=== PATIENT | female | born 1985 | race Caucasian/White ===

== ENCOUNTER 2017-07-14 11:49 | Emergency (ER) | payer MEDICAID ==
[2017-07-14 11:56] VITALS: BP 146/89
[2017-07-14] MEDS ORDERED: Ondansetron 4 MG/2 ML SDV IVPUSH ONE (12:18)
[2017-07-14] MEDS ORDERED: Sodium Chloride 0.9% 1,000 ML IV SCH ×2 (12:30→14:30)
--- NOTE | 2017-07-14 14:27 | CR ---
Abdomen Series w Chest 1V HISTORY: No Clinical Info FINDINGS: Heart size within normal limits. Pulmonary vasculature within normal limits. No evidence fo r focal consolidation or cardiopulmonary process. No dilated loops of small bowel. Large amount of fe suleiman residual within left-sided colon.
--- NOTE | 2017-07-14 15:23 | EDM.PDOC ---
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 It was very hot in the area. She suddenly felt very lite headed and got extremely sweaty. She did not have chest pain. She did not vomit. She thought her fluid intake was good. She does admit to being very busy for the last 2-3 days. She has been aving normal 12Bis. Onset: Today, Sudden Duration: Hour(s): Location: Reports: Head, Other (Pt did not have any pain on arrival. ) Associated Symptoms: Reports: Other (pt did have mild nausea. 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 She still felt a little washed out. ) Psychiatric: Reports: No Symptoms - Physical Exam Exam: See Below Text/Narrative:: pt had a near syncopal episode. She denied chest pain. Aftetr being here for a short time she did develop some pain in the left upper abdoman. . She had this briefly and then it went away. Exam Limited By: No Limitations General Appearance: Alert, Anxious, Mild Distress Ears: Normal TMs Nose: Normal Inspection Throat/Mouth: Normal Inspection Head Exam: Atraumatic Neck: Normal Inspection Respiratory/Chest: No Respiratory Distress Cardiovascular: Regular Rate, Rhythm GI/Abdominal: Soft, Non-Tender, Other (mild tenderness in the left upper abdoman. ) (Female) Exam: Deferred Rectal (Female) Exam: Deferred Neuro Exam (Abbreviated): Alert, Oriented, Normal Cognition Course - Vital Signs Last Recorded V/S: Last Vital Signs Temp 36.1 C 07/14/17 11:55 Pulse 52 L 07/14/17 11:55 Resp 16 07/14/17 11:55 BP 146/89 H 07/14/17 11:55 Pulse Ox 99 07/14/17 11:55 - Orders/Labs/Meds Orders: Active Orders 24 hr Category Date Time Status EKG Documentation Completion [RC] ASDIRECTED Care 07/14/17 12:19 Active EKG 12 Lead [EK] Routine Ther 07/14/17 12:19 Ordered Labs: Laboratory Tests 07/14/17 07/14/17 07/14/17 Range/Units 12:01 12:01 14:21 WBC 9.9 (4.5-11.0) K/uL RBC 4.80 (3.30-5.50) M/uL Hgb 14.3 (12.0-15.0) g/dL Hct 42.6 (36.0-48.0) % MCV 89 (80-98) fL MCH 30 (27-31) pg MCHC 34 (32-36) % Plt Count 215 (150-400) K/uL Neut % (Auto) 66 (36-66) % Lymph % (Auto) 24 (24-44) % Coffee % (Auto) 9 H (2-6) % Eos % (Auto) 1 L (2-4) % Baso % (Auto) 1 (0-1) % Sodium 140 (140-148) mmol/L Potassium 3.9 (3.6-5.2) mmol/L Chloride 104 (100-108) mmol/L Carbon Dioxide 25 (21-32) mmol/L Anion Gap 10.7 (5.0-14.0) mmol/L BUN 11 (7-18) mg/dL Creatinine 0.8 (0.6-1.0) mg/dL Est Cr Clr Drug Dosing 101.84 mL/min Estimated GFR (MDRD) > 60 (>60) Glucose 104 (74-106) mg/dL Calcium 8.5 (8.5-10.1) mg/dL Total Bilirubin 0.3 (0.2-1.0) mg/dL AST 21 (15-37) U/L ALT 31 (12-78) U/L Alkaline Phosphatase 77 (46-116) U/L Total Protein 7.4 (6.4-8.2) g/dL Albumin 3.7 (3.4-5.0) g/dL Globulin 3.7 H (2.3-3.5) g/dL Albumin/Globulin Ratio 1.0 L (1.2-2.2) Urine Color Urine Appearance Urine pH (4.5-8.0) Ur Specific [place] (1.008-1.030) Urine Protein (NEGATIVE) mg/dL Urine Glucose (UA) (NEGATIVE) mg/dL Urine Ketones (NEGATIVE) mg/dL Urine Occult Blood (NEGATIVE) Urine Nitrite (NEGATIVE) Urine Bilirubin (NEGATIVE) Urine Urobilinogen (NORMAL) mg/dL Ur Leukocyte Esterase (NEGATIVE) Urine RBC (0-5) Urine WBC (0-5) Ur Epithelial Cells Amorphous Sediment Urine Bacteria Urine Mucus Urine HCG, Qual Negative 07/14/17 Range/Units 14:21 WBC (4.5-11.0) K/uL RBC (3.30-5.50) M/uL Hgb (12.0-15.0) g/dL Hct (36.0-48.0) % MCV (80-98) fL MCH (27-31) pg MCHC (32-36) % Plt Count (150-400) K/uL Neut % (Auto) (36-66) % Lymph % (Auto) (24-44) % Coffee % (Auto) (2-6) % Eos % (Auto) (2-4) % Baso % (Auto) (0-1) % Sodium (140-148) mmol/L Potassium (3.6-5.2) mmol/L Chloride (100-108) mmol/L Carbon Dioxide (21-32) mmol/L Anion Gap (5.0-14.0) mmol/L BUN (7-18) mg/dL Creatinine (0.6-1.0) mg/dL Est Cr Clr Drug Dosing mL/min Estimated GFR (MDRD) (>60) Glucose (74-106) mg/dL Calcium (8.5-10.1) mg/dL Total Bilirubin (0.2-1.0) mg/dL AST (15-37) U/L ALT (12-78) U/L Alkaline Phosphatase (46-116) U/L Total Protein (6.4-8.2) g/dL Albumin (3.4-5.0) g/dL Globulin (2.3-3.5) g/dL Albumin/Globulin Ratio (1.2-2.2) Urine Color Yellow Urine Appearance Clear Urine pH 8.0 (4.5-8.0) Ur Specific [place] 1.010 (1.008-1.030) Urine Protein Negative (NEGATIVE) mg/dL Urine Glucose (UA) Normal (NEGATIVE) mg/dL Urine Ketones Negative (NEGATIVE) mg/dL Urine Occult Blood Negative (NEGATIVE) Urine Nitrite Negative (NEGATIVE) Urine Bilirubin Negative (NEGATIVE) Urine Urobilinogen Normal (NORMAL) mg/dL Ur Leukocyte Esterase Negative (NEGATIVE) Urine RBC 0-5 (0-5) Urine WBC 0-5 (0-5) Ur Epithelial Cells Not seen Amorphous Sediment Not seen Urine Bacteria Not seen Urine Mucus Not seen Urine HCG, Qual Meds: Medications Discontinued Medications Generic Name Dose Route Start Last Admin Trade Name Freq PRN Reason Stop Dose Admin Sodium Chloride 1,000 mls @ 999 mls/hr 07/14/17 12:30 07/14/17 13:07 Normal Saline IV 999 mls/hr ASDIRECTED JOSH Administration Sodium Chloride 1,000 mls @ 999 mls/hr 07/14/17 14:30 Normal Saline IV ASDIRECTED JOSH Ondansetron HCl 4 mg 07/14/17 12:18 07/14/17 13:09 Zofran IVPUSH 07/14/17 12:19 4 mg ONETIME ONE Administration - Re-Assessments/Exams Free Text/Narrative Re-Assessment/Exam: 07/14/17 15:26 pt was found to have normal lab work/ Her ekg was normal. Her rhythm continued to look good. She was on the dehydrated side. She was given 2 liters of fluid. She is feeling back to normal. 07/15/17 07:31 Departure - Departure Time of Disposition: 15:28 Disposition: Home, Self-Care 01 Condition: Fair Clinical Impression: Dehydration - Discharge Information Instructions: Dehydration, Adult, [id number] Referrals: PCP,None [Primary Care Provider] - Forms: ED Department Discharge Care Plan Goals: epush fluids, rtc if further symptoms, tylenol for headache. - My Orders Last 24 Hours: My Active Orders 07/14/17 12:19 EKG Documentation Completion [RC] ASDIRECTED EKG 12 Lead [EK] Routine - Assessment/Plan Last 24 Hours: My Active Orders 07/14/17 12:19 EKG Documentation Completion [RC] ASDIRECTED EKG 12 Lead [EK] Routine
== END 2017-07-14 15:37 | disposition home or self-care (01) ==
LOC: JP.ED 11:49
DX: E86.0 Dehydration (principal)
CPT/HCPCS: 36415; 74022; 80053; 81001; 81025; 85025; 93005; 96360; 99284; J2405; J7040

== ENCOUNTER 2019-02-05 21:22 | Emergency (ER) | payer MEDICAID ==
[2019-02-05 21:47] VITALS: BP 141/95
[2019-02-05] MEDS ORDERED: cefTRIAXone 1 GM, Lidocaine 1% 2.1 ML IM ONE ×2 (22:10)
[2019-02-05] MEDS ORDERED: Phenazopyridine 95 MG Tab PO ONE ×2 (22:10→22:27)
--- NOTE | 2019-02-05 22:16 | EDM.PDOC ---
ED HPI GENERAL MEDICAL PROBLEM - General Chief Complaint: Genitourinary Problem Stated Complaint: UTI SYMPTOMS Time Seen by Provider: 02/05/19 22:11 Source of Information: Reports: Patient History Limitations: Reports: No Limitations - History of Present Illness INITIAL COMMENTS - FREE TEXT/NARRATIVE: pt arrived with pain in the lower abdoman and alot of burning when he passes her urine. She is going very often. Onset: Today, Other ( this has been going on all day. 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: Social & Family History - Tobacco Use Smoking Status *Q: Current Every Day Smoker Years of Tobacco use: 15 Packs/Tins Daily: 0.3 - Caffeine Use Caffeine Use: Reports: Coffee, Energy Drinks, Soda ED ROS GENERAL - Review of Systems Review Of Systems: See Below Constitutional: Reports: No Symptoms HEENT: Reports: No Symptoms Respiratory: Reports: No Symptoms Cardiovascular: Reports: No Symptoms Endocrine: Reports: No Symptoms GI/Abdominal: Reports: Abdominal Pain, Other (pt has burning on urination and marked frequency) : Reports: Dysuria, Frequency, Pain, Urgency ED EXAM, GI/ABD - Physical Exam Exam: See Below Text/Narrative:: pt arrived with marked urgency and abdomanal pain. Exam Limited By: No Limitations General Appearance: Alert, Moderate Distress Ears: Normal TMs Nose: Normal Inspection Throat/Mouth: Normal Inspection Head: Atraumatic Neck: Normal Inspection Respiratory/Chest: No Respiratory Distress Cardiovascular: Regular Rate, Rhythm GI/Abdominal Exam: Other (pain in lower abdoman. ) (Female) Exam: Deferred Rectal (Female) Exam: Deferred Back Exam: Normal Inspection Extremities: Normal Inspection Neurological: Alert, Oriented, Normal Cognition Course - Vital Signs Last Recorded V/S: Last Vital Signs Temp 35.8 C 02/05/19 21:56 Pulse 91 02/05/19 21:56 Resp 16 02/05/19 21:56 BP 141/95 H 02/05/19 21:56 Pulse Ox 98 02/05/19 21:56 - Orders/Labs/Meds Orders: Active Orders 24 hr Category Date Time Status CBC WITH AUTO DIFF [HEME] Urgent Lab 02/05/19 22:09 Ordered CULTURE URINE [RM] Stat Lab 02/05/19 22:12 Received Labs: Laboratory Tests 02/05/19 Range/Units 21:45 Urine Color [place] Urine Appearance Cloudy Urine pH 5.0 (4.5-8.0) Ur Specific [place] 1.025 (1.008-1.030) Urine Protein Trace (NEGATIVE) mg/dL Urine Glucose (UA) Normal (NEGATIVE) mg/dL Urine Ketones 50 H (NEGATIVE) mg/dL Urine Occult Blood Large (NEGATIVE) Urine Nitrite Negative (NEGATIVE) Urine Bilirubin Moderate (NEGATIVE) Urine Urobilinogen 4 (NORMAL) mg/dL Ur Leukocyte Esterase Moderate (NEGATIVE) Urine RBC 5-10 H (0-5) Urine WBC Packed H (0-5) Ur Epithelial Cells Many Amorphous Sediment Few Urine Bacteria Moderate Urine Mucus Few Urine Other See note Meds: Medications Discontinued Medications Generic Name Dose Route Start Last Admin Trade Name Freq PRN Reason Stop Dose Admin Ceftriaxone Sodium 1 gm/ 0 gm 02/05/19 22:10 Lidocaine HCl 2.1 ml IM 02/05/19 22:11 ONETIME ONE Phenazopyridine HCl 190 mg 02/05/19 22:10 Urinary Pain Relief PO 02/05/19 22:11 ONETIME ONE - Re-Assessments/Exams Free Text/Narrative Re-Assessment/Exam: 02/05/19 22:15 urine appears very infected. Her symptoms have gotten quite severe tonight. Departure - Departure Time of Disposition: 22:15 Disposition: Home, Self-Care 01 Condition: Fair Clinical Impression: UTI (urinary tract infection) - Discharge Information Instructions: Urinary Tract Infection, Adult, [id number] Referrals: PCP,None [Primary Care Provider] - Forms: ED Department Discharge Care Plan Goals: push fluids, pyridium 200mg tid for next 2 days, cipro 500mg bid for 10 days. - My Orders Last 24 Hours: My Active Orders 02/05/19 22:09 CBC WITH AUTO DIFF [HEME] Urgent 02/05/19 22:12 CULTURE URINE [RM] Stat - Assessment/Plan Last 24 Hours: My Active Orders 02/05/19 22:09 CBC WITH AUTO DIFF [HEME] Urgent 02/05/19 22:12 CULTURE URINE [RM] Stat
[2019-02-05] MEDS ORDERED: Phenazopyridine 95 MG Tab PO STA (22:34)
== END 2019-02-05 22:43 | disposition home or self-care (01) ==
LOC: JP.ED 21:22
DX: N39.0 Urinary tract infection, site not specified (principal); F17.210 Nicotine dependence, cigarettes, uncomplicated
CPT/HCPCS: 36415; 81001; 85025; 87086; 96372; 99283; A9270; J0696; J2001

== ENCOUNTER 2019-07-30 14:47 | Emergency (ER) | payer MEDICAID ==
[2019-07-30 15:03] VITALS: BP 128/85; PULSE 67
[2019-07-30] MEDS ORDERED: Ondansetron 4 MG/2 ML SDV IVPUSH ONE (15:23)
[2019-07-30] MEDS ORDERED: Sodium Chloride 0.9% 1,000 ML IV SCH (15:30)
--- NOTE | 2019-07-30 15:30 | EDM.PDOC ---
ED HPI GENERAL MEDICAL PROBLEM - General Chief Complaint: Genitourinary Problem Stated Complaint: POSSIBLE UTI Time Seen by Provider: 07/30/19 14:56 Source of Information: Reports: Patient History Limitations: Reports: No Limitations - History of Present Illness INITIAL COMMENTS - FREE TEXT/NARRATIVE: 34 yo female presents with right sided flank pain and dysuria. She is 11 weeks . Has a 8 mm kidney stone. 24 hours ago dysuria unrelieved with Azo. nauseated but that is not new with this . 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 - Tobacco Use Smoking Status *Q: Never Smoker - Caffeine Use Caffeine Use: Reports: Coffee, Energy Drinks, Soda ED ROS GENERAL - Review of Systems Review Of Systems: See Below Constitutional: Denies: Fever, Chills Respiratory: Denies: Shortness of Breath, Wheezing Cardiovascular: Denies: Chest Pain, Palpitations GI/Abdominal: Reports: Abdominal Pain : Reports: Dysuria, Flank Pain, Frequency, Urgency ED EXAM, GI/ABD - Physical Exam Exam: See Below Exam Limited By: No Limitations General Appearance: Alert, WD/WN, No Apparent Distress Neck: Normal Inspection, Supple, Non-Tender, Full Range of Motion. No: Lymphadenopathy (R), Lymphadenopathy (L) Respiratory/Chest: No Respiratory Distress, Lungs Clear, Normal Breath Sounds. No: Crackles, Rhonchi, Wheezing Cardiovascular: Normal Peripheral Pulses, Regular Rate, Rhythm, No Edema GI/Abdominal Exam: Soft, No Distention, Other (suprapubic tenderness) Course - Vital Signs Last Recorded V/S: Last Vital Signs Temp 36.8 C 07/30/19 15:02 Pulse 67 07/30/19 15:02 Resp 15 07/30/19 15:02 BP 128/85 07/30/19 15:02 Pulse Ox 98 07/30/19 15:02 - Orders/Labs/Meds Orders: Active Orders 24 hr Category Date Time Status CULTURE URINE [RM] Stat Lab 07/30/19 16:30 Received Sodium Chloride 0.9% [Normal Saline] 1,000 ml Med 07/30/19 15:30 Active IV ASDIRECTED Medication Orders Sodium Chloride (Normal Saline) 1,000 mls @ 999 mls/hr IV ASDIRECTED JOSH Last Admin: 07/30/19 15:38 Dose: 999 mls/hr Labs: Laboratory Tests 07/30/19 Range/Units 15:15 Urine Color Yellow (YELLOW) Urine Appearance Slightly cloudy A (CLEAR) Urine pH 6.5 (5.0-8.0) Ur Specific [place] 1.025 (1.008-1.030) Urine Protein Negative (NEGATIVE) mg/dL Urine Glucose (UA) Negative (NEGATIVE) mg/dL Urine Ketones Negative (NEGATIVE) mg/dL Urine Occult Blood Trace-intact H (NEGATIVE) Urine Nitrite Positive H (NEGATIVE) Urine Bilirubin Negative (NEGATIVE) Urine Urobilinogen 0.2 (0.2-1.0) EU/dL Ur Leukocyte Esterase Negative (NEGATIVE) Urine RBC 0-5 (0-5) Urine WBC 0-5 (0-5) Ur Epithelial Cells Moderate Amorphous Sediment Not seen Urine Bacteria Moderate Urine Mucus Not seen Meds: Medications Generic Name Dose Route Start Last Admin Trade Name Freq PRN Reason Stop Dose Admin Sodium Chloride 1,000 mls @ 999 mls/hr 07/30/19 15:30 07/30/19 15:38 Normal Saline IV 999 mls/hr ASDIRECTED JOSH Administration Discontinued Medications Generic Name Dose Route Start Last Admin Trade Name Freq PRN Reason Stop Dose Admin Acetaminophen 1,000 mg 07/30/19 15:42 07/30/19 15:56 Tylenol Extra Strength PO 07/30/19 15:43 1,000 mg ONETIME ONE Administration Ondansetron HCl 4 mg 07/30/19 15:23 07/30/19 15:38 Zofran IVPUSH 07/30/19 15:24 4 mg ONETIME ONE Administration Departure - Departure Time of Disposition: 16:49 Disposition: Home, Self-Care 01 Condition: Good Clinical Impression: UTI, Urinary tract infectious disease - Discharge Information *PRESCRIPTION DRUG MONITORING PROGRAM REVIEWED*: Not Applicable *COPY OF PRESCRIPTION DRUG MONITORING REPORT IN PATIENT JULIUS: Not Applicable Instructions: Urinary Tract Infection, Adult, [id number] Referrals: PCP,None [Primary Care Provider] - Forms: ED Department Discharge Additional Instructions: increase fluid intake with goal of 1.5-2 liters per day Amoxicillin 500 mg twice daily for 7 days - My Orders Last 24 Hours: My Active Orders 07/30/19 15:30 Sodium Chloride 0.9% [Normal Saline] 1,000 ml IV ASDIRECTED 07/30/19 16:30 CULTURE URINE [RM] Stat - Assessment/Plan Last 24 Hours: My Active Orders 07/30/19 15:30 Sodium Chloride 0.9% [Normal Saline] 1,000 ml IV ASDIRECTED 07/30/19 16:30 CULTURE URINE [RM] Stat
[2019-07-30] MEDS ORDERED: Acetaminophen 500 MG Tab PO ONE (15:42)
== END 2019-07-30 17:03 | disposition home or self-care (01) ==
LOC: JP.ED 14:47
DX: O23.41 Unspecified infection of urinary tract in pregnancy, first trimester (principal); Z3A.11 11 weeks gestation of pregnancy
CPT/HCPCS: 81001; 87086; 96361; 96374; 99284; A9270; J2405; J7030

== ENCOUNTER 2020-09-20 12:59 | Inpatient (IN) | payer MEDICAID ==
[2020-09-20] MEDS ORDERED: Acetaminophen 325 MG Tab PO PRN (13:39)
[2020-09-20] MEDS ORDERED: Sodium Chloride 0.9% 10 ML Syringe FLUSH PRN (13:39)
--- NOTE | 2020-09-20 15:14 | US ---
BPP w NST INDICATION: post dates COMPARISON: None FINDINGS: Single live IUP in: Cephalic position. heart rate: 128 BPM. Biophysical profile score: 8/8. OLIVIA: 9.3 cm. IMPRESSION: Normal biophysical profile score of 8/8.
--- NOTE | 2020-09-20 17:19 | PCM.LDHP ---
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: Dermatologic History: Reports: Eczema Social & Family History - Tobacco Use Tobacco Use Status *Q: Former Tobacco User Used Tobacco, but Quit: Yes Month/Year Tobacco Last Used: 11/30/19 Second Hand Smoke Exposure: No - Caffeine Use Caffeine Use: Reports: Coffee, Soda, Tea - Recreational Drug Use Recreational Drug Use: No H&P Review of Systems - Review of Systems: Review Of Systems: See Below General: Reports: No Symptoms HEENT: Reports: No Symptoms Pulmonary: Reports: No Symptoms Cardiovascular: Reports: No Symptoms Gastrointestinal: Reports: No Symptoms Genitourinary: Reports: No Symptoms Musculoskeletal: Reports: No Symptoms Skin: Reports: No Symptoms Psychiatric: Reports: No Symptoms Neurological: Reports: No Symptoms Hematologic/Lymphatic: Reports: No Symptoms Immunologic: Reports: No Symptoms L&D Exam - Exam Exam: See Below - Vital Signs Vital Signs: Last Vital Signs Temp 37.0 C 09/20/20 15:42 Pulse 81 09/20/20 15:42 Resp 18 09/20/20 15:42 BP 108/66 09/20/20 15:42 Pulse Ox 98 09/20/20 15:42 Weight: 104.326 kg - OB Specific Contraction Intensity: Mild to Moderate Movement: Active Heart Tones: Present Heart Rate (FHR) Variability: Moderate (6-25 bmp) Presentation: Vertex - Hilliard Score Hilliard Score Cervix Position: Midposition Hilliard Score Consistency: Soft Hilliard Score Effacement: >80% Hilliard Score Dilation: 3-4 cm Hilliard Score 's Station: -1 ,0 Hilliard Score Total: 10 - Exam General: Alert, Oriented, Cooperative HEENT: PERRLA, Conjunctiva Clear, EACs Clear, EOMI, Hearing Intact, Mucosa Moist & [place], Nares Patent, Normal Nasal Septum, Posterior Pharynx Clear, Pupils Equal, Pupils Reactive, TMs Clear Neck: Supple, Trachea Midline Lungs: Clear to Auscultation, Normal Respiratory Effort Cardiovascular: Regular Rate, Regular Rhythm GI/Abdominal Exam: Normal Bowel Sounds, Soft, Non-Tender, No Organomegaly, No Distention, No Abnormal Bruit, No Mass, Pelvis Stable Rectal Exam: Normal Exam, Normal Rectal Tone Genitourinary: Normal external exam, Normal bimanual exam, Normal speculum exam Back Exam: Normal Inspection, Full Range of Motion Extremities: Normal Inspection, Normal Range of Motion, Non-Tender, No Pedal Edema, Normal Capillary Refill Skin: Warm, Dry, Intact Neurological: Cranial Nerves Intact, Reflexes Equal Bilateral Psychiatric: Alert, Normal Affect, Normal Mood - Patient Data Lab Results Last 24 hrs: Laboratory Results - last 24 hr 09/20/20 09/20/20 09/20/20 Range/Units 13:18 13:18 13:19 WBC 8.4 (4.5-11.0) K/uL RBC 4.28 (3.30-5.50) M/uL Hgb 12.6 D (12.0-15.0) g/dL Hct 38.3 (36.0-48.0) % MCV 90 (80-98) fL MCH 29 (27-31) pg MCHC 33 (32-36) % Plt Count 215 (150-400) K/uL Neut % (Auto) 73 H (36-66) % Lymph % (Auto) 18 L (24-44) % Graham % (Auto) 9 H (2-6) % Eos % (Auto) 1 L (2-4) % Baso % (Auto) 0 (0-1) % Urine Color Yellow (YELLOW) Urine Appearance Cloudy A (CLEAR) Urine pH 7.0 (5.0-8.0) Ur Specific [place] 1.020 (1.008-1.030) Urine Protein Negative (NEGATIVE) mg/dL Urine Glucose (UA) Negative (NEGATIVE) mg/dL Urine Ketones Negative (NEGATIVE) mg/dL Urine Occult Blood Trace-intact H (NEGATIVE) Urine Nitrite Negative (NEGATIVE) Urine Bilirubin Negative (NEGATIVE) Urine Urobilinogen 0.2 (0.2-1.0) EU/dL Ur Leukocyte Esterase Trace H (NEGATIVE) Urine RBC 0-5 (0-5) Urine WBC 0-5 (0-5) Ur Epithelial Cells Many Amorphous Sediment Moderate Urine Bacteria Few Urine Mucus Few Urine Opiates Screen Negative (NEGATIVE) Ur Oxycodone Screen Negative (NEGATIVE) Urine Methadone Screen Negative (NEGATIVE) Ur Propoxyphene Screen Negative (NEGATIVE) Ur Barbiturates Screen Negative (NEGATIVE) Ur Tricyclics Screen Negative (NEGATIVE) Ur Phencyclidine Scrn Negative (NEGATIVE) Ur Amphetamine Screen Negative (NEGATIVE) U Methamphetamines Scrn Negative (NEGATIVE) Urine MDMA Screen Negative (NEGATIVE) U Benzodiazepines Scrn Negative (NEGATIVE) U Cocaine Metab Screen Negative (NEGATIVE) U Marijuana (THC) Screen Negative (NEGATIVE) Result Diagrams: 09/20/20 13:18 - Problem List (1) SNOMED Code(s): 74121496 ICD Code: Z34.90 - ENCNTR FOR SUPRVSN OF NORMAL , UNSP, UNSP TRIMESTER Status: Acute Current Visit: Yes Qualifiers: Weeks of gestation: 40 weeks Qualified Code(s): Z3A.40 - 40 weeks gestation of (2) Non-reassuring electronic monitoring tracing SNOMED Code(s): 501843150 ICD Code: O36.8390 - MATERN CARE FOR ABNLT FETL HRT RATE OR RHYM, UNSP TRI, UNSP Status: Acute Current Visit: Yes (3) Encounter for induction of labor SNOMED Code(s): 581967078 ICD Code: Z34.90 - ENCNTR FOR SUPRVSN OF NORMAL , UNSP, UNSP TRIMESTER Status: Acute Current Visit: Yes (4) AMA (advanced maternal age) multigravida 35+ SNOMED Code(s): 656130779 ICD Code: O09.529 - SUPERVISION OF ELDERLY MULTIGRAVIDA, UNSPECIFIED TRIMESTER Status: Acute Current Visit: Yes Qualifiers: Trimester: third trimester Qualified Code(s): O09.523 - Supervision of elderly multigravida, third trimester Problem List Initiated/Reviewed/Updated: Yes Orders Last 24hrs: Active Orders 24 hr Category Date Time Status Patient Status [ADT] Routine ADT 09/20/20 13:39 Active Ambulate [RC] PER UNIT ROUTINE Care 09/20/20 13:39 Active Communication Order [RC] ASDIRECTED Care 09/20/20 13:39 Active Heart Tones [RC] PER UNIT ROUTINE Care 09/20/20 13:39 Active Non Stress Test [RC] Click to Edit Care 09/20/20 13:39 Active May Shower [RC] ASDIRECTED Care 09/20/20 13:39 Active Notify Provider Vital Signs [RC] PRN Care 09/20/20 13:39 Active Notify Provider [RC] PRN Care 09/20/20 13:39 Active OB Check [OM.PC] Click To Edit Care 09/20/20 13:16 Ordered Up ad Divine [RC] ASDIRECTED Care 09/20/20 13:39 Active VTE/DVT Education [RC] Click to Edit Care 09/20/20 13:42 Active Vital Signs [RC] PER UNIT ROUTINE Care 09/20/20 13:39 Active Clear Liquid Diet [DIET] Diet 09/20/20 Lunch Active Acetaminophen [TylenoL] Med 09/20/20 13:39 Active 650 mg PO Q4H PRN Oxytocin/Normal Saline [Pitocin in NS 20 Units/1,000 ML Med 09/20/20 13:45 Active ] 20 unit in 1,000 ml IV TITRATE Sodium Chloride 0.9% [Saline Flush] Med 09/20/20 13:39 Active 10 ml FLUSH ASDIRECTED PRN DVT/VTE Prophylaxis Reflex [OM.PC] Routine Oth 09/20/20 13:39 Ordered Saline Lock Insert [OM.PC] Routine Oth 09/20/20 13:39 Ordered Resuscitation Status Routine Resus Stat 09/20/20 13:39 Ordered Medication Orders Acetaminophen (Tylenol) 650 mg PO Q4H PRN PRN Reason: Pain (Mild 1-3) and fever Oxytocin/Sodium Chloride (Pitocin In Ns 20 Units/1,000 Ml) 20 unit in 1,000 mls @ 3 mls/hr IV TITRATE JOSH; Protocol Last Titration: 09/20/20 16:54 Dose: 3 munits/min, 9 mls/hr Documented by: Titration: 09/20/20 16:30 Dose: 2 munits/min, 6 mls/hr Documented by: Titration: 09/20/20 16:08 Dose: 1 munits/min, 3 mls/hr Documented by: Admin: 09/20/20 15:38 Dose: 0.5 munits/min, 1.5 mls/hr Documented by: AUGUSTA Sodium Chloride (Saline Flush) 10 ml FLUSH ASDIRECTED PRN PRN Reason: Keep Vein Open Assessment/Plan Comment:: 09/20/2020 35 yo here at 40 5/7 gestational weeks was seen in clinic and had a nonreassuring NST with occasional variables Decision was made to send to labor and delivery for BPP and induction of labor BPP-06/23 SVE-3-//-1 FHTs now category one now Plan- Continue to monitor for labor Continue to monitor FHTs Start Pitocin now per protocol Patient may have light diet Patient may be up ad divine Patient may get in tub Plan and anticipate a vaginal delivery
[2020-09-20] MEDS ORDERED: hydrOXYzine HCl 25 MG Tab PO STA (22:49)
[2020-09-21] MEDS ORDERED: Misoprostol 50 MCG (1/2 of 100 MCG) Tab PO ONE ×2 (02:00→05:00)
[2020-09-21] MEDS ORDERED: Misoprostol 50 MCG (1/2 of 100 MCG) Tab VAG ONE (07:32)
--- NOTE | 2020-09-21 07:38 | PCM.PNLD ---
Labor Progress Note - VS & Meds Vital Signs: Last Vital Signs Temp 36.4 C 09/21/20 02:30 Pulse 75 09/21/20 02:30 Resp 16 09/21/20 02:30 BP 134/58 L 09/21/20 02:30 Pulse Ox 97 09/21/20 02:30 Active Medications: Current Medications Acetaminophen (Tylenol) 650 mg PO Q4H PRN PRN Reason: Pain (Mild 1-3) and fever Hydroxyzine HCl (Atarax) 100 mg PO BEDTIME JOSH Oxytocin/Sodium Chloride (Pitocin In Ns 20 Units/1,000 Ml) 20 unit in 1,000 mls @ 3 mls/hr IV TITRATE JOSH; Protocol Last Titration: 09/20/20 21:50 Dose: 9 munits/min, 27 mls/hr Documented by: Misoprostol (Cytotec) 50 mcg VAG ONETIME ONE Stop: 09/21/20 07:33 Sodium Chloride (Saline Flush) 10 ml FLUSH ASDIRECTED PRN PRN Reason: Keep Vein Open Discontinued Medications Hydroxyzine HCl (Atarax) 100 mg PO ONETIME STA Stop: 09/20/20 22:50 Last Admin: 09/20/20 23:04 Dose: 100 mg Documented by: Misoprostol (Cytotec) 50 mcg PO ONETIME ONE Stop: 09/21/20 02:01 Last Admin: 09/21/20 02:06 Dose: 50 mcg Documented by: Misoprostol (Cytotec) 50 mcg PO ONETIME ONE Stop: 09/21/20 05:01 Last Admin: 09/21/20 05:21 Dose: 50 mcg Documented by: - Uterine Contractions Uterine Monitoring Mode: External [place] Contraction Frequency (min): 3-4 Contraction Duration (sec): 60-70 Contraction Intensity: Mild to Moderate Uterine Resting Tone: Soft - Monitoring Heart Rate (FHR) Variability: Moderate (6-25 bmp) Accelerations: Present, 15x15 Strip Review: Category I - Vaginal Exam Dilation (cm): 5-6 Effacement (Percent): 80 Station: -1 Cervical Position: Midposition Sterile Vaginal Exam Performed By: Josseline Frederick Vaginal Exam Comment: No change since prior cervical exam per Yoly - Labor Progress (Free Text) Labor Progress: 09/20/2020 Patient is still not progressing well and SVE still the same FHTs category one now Patient not really having pain Has been up walking and has also been on ball and in tub Pitocin on 20 units Plan- Lots of education done with patient, she is tired and would like to rest Decision made to shut pitocin off and vistaril to sleep Will do oral cytotec throughout am and then in am restart plan Patient and significant other agree and verbalize understanding of plan of care Continue to monitor for labor Continue to monitor FHTs Plan and anticipate a vaginal delivery
[2020-09-21] MEDS ORDERED: Naloxone 0.4 MG/ML SDV IVPUSH PRN (07:51)
[2020-09-21] MEDS ORDERED: diphenhydrAMINE 50 MG/ML SDV IVPUSH PRN ×2 (07:51)
[2020-09-21] MEDS ORDERED: ePHEDrine 50 MG/ML SDV IVPUSH PRN ×2 (07:51)
[2020-09-21] MEDS ORDERED: Lactated Ringers 1,000 ML IV ONE (07:51)
[2020-09-21] MEDS ORDERED: Sodium Chloride 0.9% 10 ML Syringe FLUSH PRN (07:51)
--- NOTE | 2020-09-21 07:51 | PCM.PNLD ---
Labor Progress Note - VS & Meds Vital Signs: Last Vital Signs Temp 36.4 C 09/21/20 02:30 Pulse 75 09/21/20 02:30 Resp 16 09/21/20 02:30 BP 134/58 L 09/21/20 02:30 Pulse Ox 97 09/21/20 02:30 Active Medications: Current Medications Acetaminophen (Tylenol) 650 mg PO Q4H PRN PRN Reason: Pain (Mild 1-3) and fever Hydroxyzine HCl (Atarax) 100 mg PO BEDTIME JOSH Oxytocin/Sodium Chloride (Pitocin In Ns 20 Units/1,000 Ml) 20 unit in 1,000 mls @ 3 mls/hr IV TITRATE JOSH; Protocol Last Titration: 09/20/20 21:50 Dose: 9 munits/min, 27 mls/hr Documented by: Sodium Chloride (Saline Flush) 10 ml FLUSH ASDIRECTED PRN PRN Reason: Keep Vein Open Discontinued Medications Hydroxyzine HCl (Atarax) 100 mg PO ONETIME STA Stop: 09/20/20 22:50 Last Admin: 09/20/20 23:04 Dose: 100 mg Documented by: Misoprostol (Cytotec) 50 mcg PO ONETIME ONE Stop: 09/21/20 02:01 Last Admin: 09/21/20 02:06 Dose: 50 mcg Documented by: Misoprostol (Cytotec) 50 mcg PO ONETIME ONE Stop: 09/21/20 05:01 Last Admin: 09/21/20 05:21 Dose: 50 mcg Documented by: Misoprostol (Cytotec) 50 mcg VAG ONETIME ONE Stop: 09/21/20 07:33 Last Admin: 09/21/20 07:39 Dose: 50 mcg Documented by: - Uterine Contractions Uterine Monitoring Mode: External [place] Contraction Frequency (min): 3-4 Contraction Duration (sec): 60-70 Contraction Intensity: Mild to Moderate Uterine Resting Tone: Soft - Monitoring Heart Rate (FHR) Variability: Moderate (6-25 bmp) Accelerations: Present, 15x15 Strip Review: Category I - Vaginal Exam Dilation (cm): 5-6 Effacement (Percent): 90 Station: -1 Cervical Position: Midposition Sterile Vaginal Exam Performed By: Josseline Frederick - Labor Progress (Free Text) Labor Progress: 09/21/2020 Patient is still same and not katia well education again done with patient She would like to try as many things to keep from a but if in end of day that is needed she does agree FHTs category one Cytotec placed SVE slight change not significant Plan- Continue to monitor for labor Continue to monitor FHTs Four hours from Cytotec if no progression in SVE in four hours will start Pitocin per protocol Patient may eat breakfast Patient may be up ad piter Patient may choose pain control option Plan and anticipate a vaginal delivery
[2020-09-21] MEDS ORDERED: Ketorolac 60 MG/2 ML SDV ONE (09:53)
[2020-09-21] MEDS ORDERED: Sugammadex Sodium 200 MG/2 ML VIAL ONE (10:07)
[2020-09-21] MEDS ORDERED: Lidocaine 1% 50 ML MDV SCH (10:15)
[2020-09-21] MEDS ORDERED: Ropivacaine 100 ML ONE (10:18)
[2020-09-21] MEDS ORDERED: Lactated Ringers 1,000 ML IV SCH (10:30)
[2020-09-21] MEDS: Ropivacaine 200 MG in Premix Bag 1 BAG EPIDUR SCH ×2 (10:56→15:19)
--- NOTE | 2020-09-21 12:01 | PCM.PNLD ---
Labor Progress Note - VS & Meds Vital Signs: Last Vital Signs Temp 36.8 C 09/21/20 07:43 Pulse 72 09/21/20 11:29 Resp 16 09/21/20 11:19 BP 92/61 09/21/20 11:32 Pulse Ox 99 09/21/20 11:29 Active Medications: Current Medications Acetaminophen (Tylenol) 650 mg PO Q4H PRN PRN Reason: Pain (Mild 1-3) and fever Diphenhydramine HCl (Benadryl) 25 mg IVPUSH Q6H PRN PRN Reason: Itching Diphenhydramine HCl (Benadryl) 50 mg IVPUSH Q6H PRN PRN Reason: Itching Ephedrine Sulfate (Ephedrine Sulfate) 10 mg IVPUSH ASDIRECTED PRN PRN Reason: Hypotension Hydroxyzine HCl (Atarax) 100 mg PO BEDTIME JOSH Oxytocin/Sodium Chloride (Pitocin In Ns 20 Units/1,000 Ml) 20 unit in 1,000 mls @ 3 mls/hr IV TITRATE JOSH; Protocol Last Titration: 09/20/20 21:50 Dose: 9 munits/min, 27 mls/hr Documented by: Ropivacaine 200 mg/ Premix 100 mls @ 0 mls/hr EPIDUR ASDIRECTED JOSH Last Admin: 09/21/20 10:56 Dose: 15 mls/hr Documented by: Lactated Ringer's (Ringers, Lactated) 1,000 mls @ 100 mls/hr IV ASDIRECTED JOSH Last Admin: 09/21/20 10:57 Dose: 100 mls/hr Documented by: Lidocaine HCl (Xylocaine 1%) 50 ml .XX ONETIME JOSH Stop: 09/21/20 18:00 Naloxone HCl (Narcan) 0.1 mg IVPUSH ASDIRECTED PRN PRN Reason: Oversedation Sodium Chloride (Saline Flush) 10 ml FLUSH ASDIRECTED PRN PRN Reason: Keep Vein Open Discontinued Medications Hydroxyzine HCl (Atarax) 100 mg PO ONETIME STA Stop: 09/20/20 22:50 Last Admin: 09/20/20 23:04 Dose: 100 mg Documented by: Lactated Ringer's (Ringers, Lactated) 1,000 mls @ 999 mls/hr IV .BOLUS ONE Stop: 09/21/20 08:51 Last Admin: 09/21/20 09:35 Dose: 999 mls/hr Documented by: Ketorolac Tromethamine (Toradol) Confirm Administered Dose 60 mg .ROUTE .STK-MED ONE Stop: 09/21/20 09:54 Misoprostol (Cytotec) 50 mcg PO ONETIME ONE Stop: 09/21/20 02:01 Last Admin: 09/21/20 02:06 Dose: 50 mcg Documented by: Misoprostol (Cytotec) 50 mcg PO ONETIME ONE Stop: 09/21/20 05:01 Last Admin: 09/21/20 05:21 Dose: 50 mcg Documented by: Misoprostol (Cytotec) 50 mcg VAG ONETIME ONE Stop: 09/21/20 07:33 Last Admin: 09/21/20 07:39 Dose: 50 mcg Documented by: Sugammadex Sodium ([place]rid[place]) Confirm Administered Dose 200 mg .ROUTE .STK-MED ONE Stop: 09/21/20 10:08 - Uterine Contractions Uterine Monitoring Mode: External [place] Contraction Frequency (min): 3-8 Contraction Duration (sec): 70-100 Contraction Intensity: Moderate Uterine Resting Tone: Soft - Monitoring Monitor Mode: External Ultrasound Heart Rate (FHR) Variability: Moderate (6-25 bmp) Accelerations: Present, 15x15 Decelerations: Variable Strip Review: Category I - Vaginal Exam Dilation (cm): 8 Effacement (Percent): 90 Station: -1 Cervical Position: Midposition Sterile Vaginal Exam Performed By: Josseline Frederick - Labor Progress (Free Text) Labor Progress: 09/21/2020 Patient is finally progressing SVE-8/90/-1 SROM earlier at about 1030 FHTs category one Patient requested epidural and is now comfortable with epidural Plan- Continue to monitor labor Continue to monitor FHTs Continue epidural for pain control start pitocin per protocol to keep contractions regular Plan and anticipate a vaginal delivery
--- NOTE | 2020-09-21 17:28 | PCM.PNLD ---
Labor Progress Note - VS & Meds Vital Signs: Last Vital Signs Temp 37.2 C 09/21/20 17:24 Pulse 89 09/21/20 17:24 Resp 16 09/21/20 17:24 BP 114/73 09/21/20 17:24 Pulse Ox 99 09/21/20 17:24 Active Medications: Current Medications Acetaminophen (Tylenol) 650 mg PO Q4H PRN PRN Reason: Pain (Mild 1-3) and fever Last Admin: 09/21/20 12:02 Dose: 650 mg Documented by: Diphenhydramine HCl (Benadryl) 25 mg IVPUSH Q6H PRN PRN Reason: Itching Diphenhydramine HCl (Benadryl) 50 mg IVPUSH Q6H PRN PRN Reason: Itching Ephedrine Sulfate (Ephedrine Sulfate) 10 mg IVPUSH ASDIRECTED PRN PRN Reason: Hypotension Oxytocin/Sodium Chloride (Pitocin In Ns 20 Units/1,000 Ml) 20 unit in 1,000 mls @ 3 mls/hr IV TITRATE JOSH; Protocol Last Titration: 09/21/20 17:23 Dose: 5 munits/min, 15 mls/hr Documented by: Ropivacaine 200 mg/ Premix 100 mls @ 0 mls/hr EPIDUR ASDIRECTED [facility] Last Admin: 09/21/20 15:19 Dose: 15 mls/hr Documented by: Lactated Ringer's (Ringers, Lactated) 1,000 mls @ 100 mls/hr IV ASDIRECTED JOSH Last Admin: 09/21/20 10:57 Dose: 100 mls/hr Documented by: Lidocaine HCl (Xylocaine 1%) 50 ml .XX ONETIME JOSH Stop: 09/21/20 18:00 Naloxone HCl (Narcan) 0.1 mg IVPUSH ASDIRECTED PRN PRN Reason: Oversedation Sodium Chloride (Saline Flush) 10 ml FLUSH ASDIRECTED PRN PRN Reason: Keep Vein Open Discontinued Medications Hydroxyzine HCl (Atarax) 100 mg PO BEDTIME JOSH Hydroxyzine HCl (Atarax) 100 mg PO ONETIME STA Stop: 09/20/20 22:50 Last Admin: 09/20/20 23:04 Dose: 100 mg Documented by: Lactated Ringer's (Ringers, Lactated) 1,000 mls @ 999 mls/hr IV .BOLUS ONE Stop: 09/21/20 08:51 Last Admin: 09/21/20 09:35 Dose: 999 mls/hr Documented by: Ketorolac Tromethamine (Toradol) Confirm Administered Dose 60 mg .ROUTE .STK-MED ONE Stop: 09/21/20 09:54 Misoprostol (Cytotec) 50 mcg PO ONETIME ONE Stop: 09/21/20 02:01 Last Admin: 09/21/20 02:06 Dose: 50 mcg Documented by: Misoprostol (Cytotec) 50 mcg PO ONETIME ONE Stop: 09/21/20 05:01 Last Admin: 09/21/20 05:21 Dose: 50 mcg Documented by: Misoprostol (Cytotec) 50 mcg VAG ONETIME ONE Stop: 09/21/20 07:33 Last Admin: 09/21/20 07:39 Dose: 50 mcg Documented by: Sugammadex Sodium (Bridion) Confirm Administered Dose 200 mg .ROUTE .STK-MED ONE Stop: 09/21/20 10:08 - Uterine Contractions Uterine Monitoring Mode: External [place] Contraction Frequency (min): 2-3 Contraction Duration (sec): 40-60 Contraction Intensity: Mild Uterine Resting Tone: Soft - Monitoring Monitor Mode: External Ultrasound Heart Rate (FHR) Variability: Moderate (6-25 bmp) Accelerations: Present, 15x15 Decelerations: Variable Strip Review: Category I - Vaginal Exam Dilation (cm): Rim Effacement (Percent): 100 Station: -1 Cervical Position: Midposition Sterile Vaginal Exam Performed By: Josseline Frederick Vaginal Exam Comment: anterior lip - Labor Progress (Free Text) Labor Progress: 09/21/2020 Patient progressing still slowly, but progressing She is now comfortable with epidural SVE-Rim/100/-1 FHTs category one Pitocin running per protocol Plan- Continue to monitor labor Continue to monitor FHTs Continue epidural for pain control Plan and anticipate a vaginal delivery
[2020-09-21] MEDS ORDERED: Methylergonovine 0.2 MG/1 ML Amp ONE (18:49)
[2020-09-21] MEDS ORDERED: Carboprost Tromethamine 250 MCG/1 ML Amp ONE (18:49)
[2020-09-21] MEDS ORDERED: Misoprostol 200 MCG Tab ONE (18:49)
[2020-09-21] MEDS ORDERED: Witch Hazel Medicated Pads 100/Jar TOP ONE (19:48)
[2020-09-21] MEDS ORDERED: Benzocaine 20% Top Spray 56 GM Bottle TOP ONE (19:48)
[2020-09-21] MEDS ORDERED: Ibuprofen 200 MG Tab, 24 Tab Bulk Bottle PO PRN (19:48)
[2020-09-21] MEDS ORDERED: Acetaminophen 325 MG Tab, 50 Tab Bulk Bottle PO PRN (19:48)
[2020-09-21] MEDS ORDERED: Lanolin 100% Cream 40 GM Tube TOP ONE (19:48)
[2020-09-21] MEDS ORDERED: Docusate Sodium 100 MG Cap PO PRN (19:48)
--- NOTE | 2020-09-21 20:01 | PCM.DEL ---
L & D Note - General Info Date of Service: 09/21/20 Mother's Due Date: 09/15/20 - Delivery Note Labor: Augmented by Oxytocin Cervical Ripening Method: Misoprostil Delivery Outcome: Livebirth Infant Delivery Method: Spontaneous Vaginal Delivery-Single Delivery Mode: Spontaneous Presentation: Vertex Nuchal Cord: None Anesthesia Type: Epidural Amniotic Fluid Description: Clear Episiotomy Type: None Laceration: 1st Degree, Perineal Suture type: Vicryl Suture size: 3-0 Placenta: Intact, Spontaneous Cord: 3 Vessels Estimated Blood Loss: 450 Resuscitation Needed: No [place]: Bulb Syringe, Stimulated, Warmed, [place] Used Provider: Josseline Frederick Score 1 min: 8 Score 5 min: 9 Second Stage Interventions: Reports: Second Nurse Assessed Progress of Descent, Second Nurse Reviewed Contraction Pattern, Second Nurse Reviewed Heart Tones, Encouragement Given, Laboring Down, Pushing Effectively, Pushing, Knee Chest Position, Pushing, McRobert's Position, Pushing, Stirrups/Leg Supports Delivery Comments (Free Text/Narrative):: 09/21/2020 35 yo delivered a viable male at 1844 on 09/21/2020 over an intact perineum at 40 6/7 gestational weeks. Infant delivered and was placed on mother's abdomen on prewarmed blankets. then began to cry vigorously and pink in color. delayed cord clamping was done for about 90 seconds before cord was double clamped by provider and cut by father of infant. was then brought skin to skin on mother. APGARS-8/9, weight-9lbs 4oz, length-19.5 inches, infant was bulb suctioned, stimulated, dried and warmed. did have large terminal meconium on delivery. Placenta then came after a large amount of before bleeding and some clots, Pitocin was started wide open, and one dose of Methergine was given after delivery of placenta for an EBL of 450ml. Placenta was intact and complete. Laceration noted 1st degree perineal-repaired in usual fashion. No lacerations noted of labia, vagina, cervix, or rectum. now skin to skin with mother and both stable in labor and delivery room. Stages of labor- [id number] - General Info Date of Service: 09/21/20 Functional Status: Reports: Pain Controlled - Review of Systems General: Reports: No Symptoms HEENT: Reports: No Symptoms Pulmonary: Reports: No Symptoms Cardiovascular: Reports: No Symptoms Gastrointestinal: Reports: No Symptoms Genitourinary: Reports: No Symptoms Musculoskeletal: Reports: No Symptoms Skin: Reports: No Symptoms Neurological: Reports: No Symptoms Psychiatric: Reports: No Symptoms - Patient Data Vitals - Most Recent: Last Vital Signs Temp 37.2 C 09/21/20 17:24 Pulse 89 09/21/20 17:24 Resp 16 09/21/20 17:24 BP 114/73 09/21/20 17:24 Pulse Ox 99 09/21/20 17:24 Weight - Most Recent: 104.326 kg I&O - Last 24 Hours: Intake & Output 09/21/20 09/21/20 09/21/20 06:59 14:59 22:59 Output Total 600 Balance -600 Lab Results Last 24 Hours: Laboratory Results - last 24 hr 09/21/20 Range/Units 07:05 WBC 8.3 (4.5-11.0) K/uL RBC 4.01 (3.30-5.50) M/uL Hgb 11.7 L (12.0-15.0) g/dL Hct 36.0 (36.0-48.0) % MCV 90 (80-98) fL MCH 29 (27-31) pg MCHC 33 (32-36) % Plt Count 195 (150-400) K/uL Neut % (Auto) 71 H (36-66) % Lymph % (Auto) 20 L (24-44) % [place] % (Auto) 9 H (2-6) % Eos % (Auto) 1 L (2-4) % Baso % (Auto) 0 (0-1) % Med Orders - Current: Current Medications Acetaminophen (Tylenol Bulk Bottle) 0 mg PO Q4H PRN PRN Reason: Pain Diphenhydramine HCl (Benadryl) 25 mg IVPUSH Q6H PRN PRN Reason: Itching Diphenhydramine HCl (Benadryl) 50 mg IVPUSH Q6H PRN PRN Reason: Itching Docusate Sodium (Colace) 100 mg PO BID PRN PRN Reason: Constipation Ephedrine Sulfate (Ephedrine Sulfate) 10 mg IVPUSH ASDIRECTED PRN PRN Reason: Hypotension Oxytocin/Sodium Chloride (Pitocin In Ns 20 Units/1,000 Ml) 20 unit in 1,000 mls @ 3 mls/hr IV TITRATE [facility]; Protocol Last Titration: 09/21/20 17:23 Dose: 5 munits/min, 15 mls/hr Documented by: Ropivacaine 200 mg/ Premix 100 mls @ 0 mls/hr EPIDUR ASDIRECTED [facility] Last Infusion: 09/21/20 17:45 Dose: 12 mls/hr Documented by: Lactated Ringer's (Ringers, Lactated) 1,000 mls @ 100 mls/hr IV ASDIRECTED [facility] Last Admin: 09/21/20 10:57 Dose: 100 mls/hr Documented by: Ibuprofen (Motrin Bulk Bottle) 600 mg PO Q6H PRN PRN Reason: Pain Naloxone HCl (Narcan) 0.1 mg IVPUSH ASDIRECTED PRN PRN Reason: Oversedation Sodium Chloride (Saline Flush) 10 ml FLUSH ASDIRECTED PRN PRN Reason: Keep Vein Open Discontinued Medications Acetaminophen (Tylenol) 650 mg PO Q4H PRN PRN Reason: Pain (Mild 1-3) and fever Last Admin: 09/21/20 12:02 Dose: 650 mg Documented by: Benzocaine (Dctq-K-Fvazxcf 20% [place]) 0 gm TOP ONETIME ONE Stop: 09/21/20 19:49 Carboprost Tromethamine (Hemabate Ds) Confirm Administered Dose 250 mcg .ROUTE .STK-MED ONE Stop: 09/21/20 18:50 Emollient Ointment (Lansinoh Hpa) 0 gm TOP ONETIME ONE Stop: 09/21/20 19:49 Hydroxyzine HCl (Atarax) 100 mg PO BEDTIME JOSH Hydroxyzine HCl (Atarax) 100 mg PO ONETIME STA Stop: 09/20/20 22:50 Last Admin: 09/20/20 23:04 Dose: 100 mg Documented by: Lactated Ringer's (Ringers, Lactated) 1,000 mls @ 999 mls/hr IV .BOLUS ONE Stop: 09/21/20 08:51 Last Admin: 09/21/20 09:35 Dose: 999 mls/hr Documented by: Ketorolac Tromethamine (Toradol) Confirm Administered Dose 60 mg .ROUTE .STK-MED ONE Stop: 09/21/20 09:54 Lidocaine HCl (Xylocaine 1%) 50 ml .XX ONETIME JOSH Stop: 09/21/20 18:00 Methylergonovine Maleate (Methergine) Confirm Administered Dose 0.2 mg .ROUTE .STK-MED ONE Stop: 09/21/20 18:50 Last Admin: 09/21/20 18:55 Dose: 0.2 mg Documented by: Misoprostol (Cytotec) 50 mcg PO ONETIME ONE Stop: 09/21/20 02:01 Last Admin: 09/21/20 02:06 Dose: 50 mcg Documented by: Misoprostol (Cytotec) 50 mcg PO ONETIME ONE Stop: 09/21/20 05:01 Last Admin: 09/21/20 05:21 Dose: 50 mcg Documented by: Misoprostol (Cytotec) 50 mcg VAG ONETIME ONE Stop: 09/21/20 07:33 Last Admin: 09/21/20 07:39 Dose: 50 mcg Documented by: Misoprostol (Cytotec) Confirm Administered Dose 800 mcg .ROUTE .STK-MED ONE Stop: 09/21/20 18:50 Sugammadex Sodium (Bridion) Confirm Administered Dose 200 mg .ROUTE .STK-MED ONE Stop: 09/21/20 10:08 [place] Va (Tucks) 1 pad TOP ONETIME ONE Stop: 09/21/20 19:49 - Exam General: Alert, Oriented, Cooperative HEENT: Pupils Equal, Pupils Reactive, EOMI, Mucous Membr. Moist/[place] Neck: Supple Lungs: Clear to Auscultation, Normal Respiratory Effort Cardiovascular: Regular Rate, Regular Rhythm GI/Abdominal Exam: Normal Bowel Sounds, Soft, Non-Tender, No Organomegaly, No Distention, No Abnormal Bruit, No Mass, Pelvis Stable (Female) Exam: Normal External Exam, Normal Speculum Exam, Normal Bimanual Exam, Enlarged Uterus, Vaginal Bleeding Back Exam: Normal Inspection, Full Range of Motion Extremities: Normal Inspection, Normal Range of Motion, Non-Tender, No Pedal Edema, Normal Capillary Refill Skin: Warm, Dry, Intact Wound/Incisions: Healing Well Neurological: No New Focal Deficit Psy/Mental Status: Alert, Normal Affect, Normal Mood - Problem List & Annotations (1) SNOMED Code(s): 04395325 Code(s): Z34.90 - ENCNTR FOR SUPRVSN OF NORMAL , UNSP, UNSP TRIMESTER Status: Acute Current Visit: Yes Qualifiers: Weeks of gestation: 40 weeks Qualified Code(s): Z3A.40 - 40 weeks gestation of (2) Non-reassuring electronic monitoring tracing SNOMED Code(s): 100819425 Code(s): O36.8390 - MATERN CARE FOR ABNLT FETL HRT RATE OR RHYM, UNSP TRI, UNSP Status: Acute Current Visit: Yes (3) Encounter for induction of labor SNOMED Code(s): 200466211 Code(s): Z34.90 - ENCNTR FOR SUPRVSN OF NORMAL , UNSP, UNSP TRIMESTER Status: Acute Current Visit: Yes (4) AMA (advanced maternal age) multigravida 35+ SNOMED Code(s): 814718273 Code(s): O09.529 - SUPERVISION OF ELDERLY MULTIGRAVIDA, UNSPECIFIED TRIMESTER Status: Acute Current Visit: Yes Qualifiers: Trimester: third trimester Qualified Code(s): O09.523 - Supervision of elderly multigravida, third trimester (5) Vaginal delivery SNOMED Code(s): 741956557 Code(s): O80 - ENCOUNTER FOR FULL-TERM UNCOMPLICATED DELIVERY Status: Acute Current Visit: Yes (6) Perineal laceration SNOMED Code(s): 309650032 Code(s): XKN1407 - Status: Acute Current Visit: Yes (7) (infant) SNOMED Code(s): 136418140 Code(s): Z78.9 - OTHER SPECIFIED HEALTH STATUS Status: Acute Current Visit: Yes (8) Abnormal placenta SNOMED Code(s): 722160180 Code(s): O43.109 - MALFORMATION OF PLACENTA, UNSPECIFIED, UNSPECIFIED TRIMESTER Status: Acute Current Visit: Yes Qualifiers: Trimester: third trimester Qualified Code(s): O43.103 - Malformation of placenta, unspecified, third trimester - Problem List Review Problem List Initiated/Reviewed/Updated: Yes - My Orders Last 24 Hours: My Active Orders 09/21/20 07:51 Communication Order [RC] ASDIRECTED Communication Order [RC] ROUTINE Communication Order [RC] ROUTINE Communication Order [RC] ROUTINE Local Anesthetic Infusion Pump [RC] ASDIRECTED Oxygen Therapy [RC] ASDIRECTED PCEA Epidural [RC] ASDIRECTED Pulse Oximetry [RC] ASDIRECTED Vital Signs [RC] PER UNIT ROUTINE Naloxone [Narcan] 0.1 mg IVPUSH ASDIRECTED PRN diphenhydrAMINE [Benadryl] 25 mg IVPUSH Q6H PRN diphenhydrAMINE [Benadryl] 50 mg IVPUSH Q6H PRN ePHEDrine [ePHEDrine sulfate] 10 mg IVPUSH ASDIRECTED PRN Epidural Catheter Management [OM.PC] Routine Epidural Catheter Management [OM.PC] Urgent Peripheral IV Insertion Pediatric [OM.PC] Routine 09/21/20 07:52 Peripheral IV Care [RC] Q12H 09/21/20 08:00 Insert Urinary Catheter [OM.PC] ASDIRECTED Regular Diet [DIET] Ropivacaine [Naropin 0.2%] 200 mg Premix Bag 1 bag EPIDUR ASDIRECTED 09/21/20 10:30 Lactated Ringers [Ringers, Lactated] 1,000 ml IV ASDIRECTED 09/21/20 19:48 Patient Status [ADT] Routine Vital Signs [RC] PFP Acetaminophen [Tylenol Bulk Bottle] See Dose Instructions PO Q4H PRN Docusate Sodium [Colace] 100 mg PO BID PRN Ibuprofen [Motrin Bulk Bottle] 600 mg PO Q6H PRN Assess Lochia [WOMSER] Per Unit Routine Assess Uterine Involution [WOMSER] Per Unit Routine 09/21/20 19:49 Ice Therapy [OM.PC] Per Unit Routine Perineal Care [OM.PC] Per Unit Routine Sitz Bath [OM.PC] Per Unit Routine 09/22/20 06:00 CBC WITH AUTO DIFF [HEME] Routine - Assessment Assessment:: 09/21/2020 without complications Labs-O positive, HIV neg, Hep B neg, Hep C neg, RPR nonreactive, Rubella Immune, GBS negative 1st degree perineal laceration - Plan Plan:: 09/20/2020 35 yo here at 40 5/7 gestational weeks was seen in clinic and had a nonreassuring NST with occasional variables Decision was made to send to labor and delivery for BPP and induction of labor BPP-06/23 SVE-3-/-1 FHTs now category one now Plan- Continue to monitor for labor Continue to monitor FHTs Start Pitocin now per protocol Patient may have light diet Patient may be up ad piter Patient may get in tub Plan and anticipate a vaginal delivery 09/21/2020 Plan- Routine cares Good perineal care support
[2020-09-21] MEDS ORDERED: hydrOXYzine HCl 25 MG Tab PO SCH (21:00)
--- NOTE | 2020-09-21 21:33 | ANES ---
DATE OF SERVICE: 09/21/2020 TIME: 10:30 INDICATIONS: I was called to the Labor and Delivery Unit by Josseline Frederick to evaluate Ms. Chavez for a labor epidural. She is approximately 7 cm and in very active labor, and she wishes to proceed. The risks and benefits of procedure were explained to the patient. She wished to proceed. TECHNIQUE: She was placed in a sitting position. Her back was prepped x3 with Betadine. 1% lidocaine skin local was used. The epidural was placed at L3-4 using a 17-gauge Tuohy needle with loss of resistance technique. The epidural had very good feel throughout, and the epidural space was easily identified. There was negative CSF, negative blood, and negative paresthesias noted. Therefore, a catheter was threaded to 12 cm at the skin. There was negative CSF, negative blood, and negative paresthesias with catheter, therefore 1.5% lidocaine with epinephrine test dose was given, this test dose was negative. The catheter was then secured with Tegaderm tape, and the patient was placed in a supine position. A 12 mL bolus of 0.2% ropivacaine was given. This bolus had good relief, and her vital signs remained stable. Therefore, 0.2% ropivacaine drip was started at 15 mL/h. The patient tolerated the procedure very nicely. Her vital signs remained stable throughout the procedure. The nurse was with me for the entire procedure. There were no anesthesia complications noted, and we will continue to monitor her throughout her Labor and Delivery. Antony Arredondo CRNA /[id number]
--- NOTE | 2020-09-22 11:07 | PCM.PNPP ---
- General Info Date of Service: 09/22/20 Functional Status: Reports: Pain Controlled - Review of Systems General: Reports: No Symptoms HEENT: Reports: No Symptoms Pulmonary: Reports: No Symptoms Cardiovascular: Reports: No Symptoms Gastrointestinal: Reports: No Symptoms Genitourinary: Reports: No Symptoms Musculoskeletal: Reports: No Symptoms Skin: Reports: No Symptoms Neurological: Reports: No Symptoms Psychiatric: Reports: No Symptoms - General Info Date of Service: 09/22/20 - Patient Data Vital Signs - Most Recent: Last Vital Signs Temp 35.7 C L 09/22/20 07:54 Pulse 74 09/22/20 07:54 Resp 18 09/22/20 07:54 BP 96/56 L 09/22/20 07:54 Pulse Ox 98 09/22/20 07:54 Weight - Most Recent: 104.326 kg I&O - Last 24 Hours: Intake & Output 09/21/20 09/22/20 09/22/20 22:59 06:59 14:59 Intake Total 1077 600 Output Total 600 Balance 477 600 Lab Results - Last 24 Hours: Laboratory Results - last 24 hr 09/22/20 Range/Units 04:30 WBC 13.9 H (4.5-11.0) K/uL RBC 3.69 (3.30-5.50) M/uL Hgb 10.9 L (12.0-15.0) g/dL Hct 33.3 L (36.0-48.0) % MCV 90 (80-98) fL MCH 30 (27-31) pg MCHC 33 (32-36) % Plt Count 189 (150-400) K/uL Neut % (Auto) 73 H (36-66) % Lymph % (Auto) 15 L (24-44) % [place] % (Auto) 12 H (2-6) % Eos % (Auto) 1 L (2-4) % Baso % (Auto) 0 (0-1) % Med Orders - Current: Current Medications Acetaminophen (Tylenol Bulk Bottle) 0 mg PO Q4H PRN PRN Reason: Pain Diphenhydramine HCl (Benadryl) 25 mg IVPUSH Q6H PRN PRN Reason: Itching Diphenhydramine HCl (Benadryl) 50 mg IVPUSH Q6H PRN PRN Reason: Itching Docusate Sodium (Colace) 100 mg PO BID PRN PRN Reason: Constipation Ephedrine Sulfate (Ephedrine Sulfate) 10 mg IVPUSH ASDIRECTED PRN PRN Reason: Hypotension Oxytocin/Sodium Chloride (Pitocin In Ns 20 Units/1,000 Ml) 20 unit in 1,000 mls @ 3 mls/hr IV TITRATE [facility]; Protocol Last Titration: 09/21/20 17:23 Dose: 5 munits/min, 15 mls/hr Documented by: Ropivacaine 200 mg/ Premix 100 mls @ 0 mls/hr EPIDUR ASDIRECTED [facility] Last Infusion: 09/21/20 17:45 Dose: 12 mls/hr Documented by: Lactated Ringer's (Ringers, Lactated) 1,000 mls @ 100 mls/hr IV ASDIRECTED [facility] Last Admin: 09/21/20 10:57 Dose: 100 mls/hr Documented by: Ibuprofen (Motrin Bulk Bottle) 600 mg PO Q6H PRN PRN Reason: Pain Naloxone HCl (Narcan) 0.1 mg IVPUSH ASDIRECTED PRN PRN Reason: Oversedation Sodium Chloride (Saline Flush) 10 ml FLUSH ASDIRECTED PRN PRN Reason: Keep Vein Open Discontinued Medications Acetaminophen (Tylenol) 650 mg PO Q4H PRN PRN Reason: Pain (Mild 1-3) and fever Last Admin: 09/21/20 12:02 Dose: 650 mg Documented by: Benzocaine (Mkuo-Q-Lsqqttl 20% [place]) 0 gm TOP ONETIME ONE Stop: 09/21/20 19:49 Last Admin: 09/21/20 19:57 Dose: 1 spray Documented by: Carboprost Tromethamine (Hemabate Ds) Confirm Administered Dose 250 mcg .ROUTE .STK-MED ONE Stop: 09/21/20 18:50 Last Admin: 09/21/20 20:10 Dose: Not Given Documented by: Emollient Ointment (Lansinoh Hpa) 0 gm TOP ONETIME ONE Stop: 09/21/20 19:49 Last Admin: 09/21/20 19:56 Dose: 1 applic Documented by: Hydroxyzine HCl (Atarax) 100 mg PO BEDTIME JOSH Hydroxyzine HCl (Atarax) 100 mg PO ONETIME STA Stop: 09/20/20 22:50 Last Admin: 09/20/20 23:04 Dose: 100 mg Documented by: Lactated Ringer's (Ringers, Lactated) 1,000 mls @ 999 mls/hr IV .BOLUS ONE Stop: 09/21/20 08:51 Last Admin: 09/21/20 09:35 Dose: 999 mls/hr Documented by: Ketorolac Tromethamine (Toradol) Confirm Administered Dose 60 mg .ROUTE .STK-MED ONE Stop: 09/21/20 09:54 Lidocaine HCl (Xylocaine 1%) 50 ml .XX ONETIME JOSH Stop: 09/21/20 18:00 Methylergonovine Maleate (Methergine) Confirm Administered Dose 0.2 mg .ROUTE .STK-MED ONE Stop: 09/21/20 18:50 Last Admin: 09/21/20 18:55 Dose: 0.2 mg Documented by: Misoprostol (Cytotec) 50 mcg PO ONETIME ONE Stop: 09/21/20 02:01 Last Admin: 09/21/20 02:06 Dose: 50 mcg Documented by: Misoprostol (Cytotec) 50 mcg PO ONETIME ONE Stop: 09/21/20 05:01 Last Admin: 09/21/20 05:21 Dose: 50 mcg Documented by: Misoprostol (Cytotec) 50 mcg VAG ONETIME ONE Stop: 09/21/20 07:33 Last Admin: 09/21/20 07:39 Dose: 50 mcg Documented by: Misoprostol (Cytotec) Confirm Administered Dose 800 mcg .ROUTE .STK-MED ONE Stop: 09/21/20 18:50 Last Admin: 09/21/20 20:09 Dose: Not Given Documented by: Sugammadex Sodium (Bridion) Confirm Administered Dose 200 mg .ROUTE .STK-MED ONE Stop: 09/21/20 10:08 [place] (Tucks) 1 pad TOP ONETIME ONE Stop: 09/21/20 19:49 Last Admin: 09/21/20 19:57 Dose: 1 applic Documented by: - Infant Interaction Disposition, : in Room with Family Interaction: Holding Infant Feeding: Breastfed ; Nursed Well Support Person: - Recovery Exam Fundal Tone: Firm Fundal Level: At Umbilicus Fundal Placement: Midline Lochia Amount: Moderate Lochia Color: Rubra/Red Perineum Description: Intact, Minimal Bruising/Swelling Episiotomy/Laceration: None Bladder Status: Voiding Urinary Elimination: Voided Other Urinary Elimination, : assistedd to commode - Exam General: Alert, Oriented, Cooperative HEENT: Pupils Equal, Pupils Reactive, EOMI, Mucous Membr. Moist/[place] Neck: Supple Lungs: Clear to Auscultation, Normal Respiratory Effort Cardiovascular: Regular Rate, Regular Rhythm GI/Abdominal Exam: Normal Bowel Sounds, Soft, Non-Tender, No Organomegaly, No Distention, No Abnormal Bruit, No Mass, Pelvis Stable Extremities: Normal Inspection, Normal Range of Motion, Non-Tender, No Pedal Edema, Normal Capillary Refill Skin: Warm, Dry, Intact Wound/Incisions: Healing Well Neurological: No New Focal Deficit Psy/Mental Status: Alert, Normal Affect, Normal Mood - Problem List & Annotations (1) SNOMED Code(s): 93672294 Code(s): Z34.90 - ENCNTR FOR SUPRVSN OF NORMAL , UNSP, UNSP TRIMESTER Status: Acute Current Visit: Yes Qualifiers: Weeks of gestation: 40 weeks Qualified Code(s): Z3A.40 - 40 weeks gestation of (2) Non-reassuring electronic monitoring tracing SNOMED Code(s): 902136530 Code(s): O36.8390 - MATERN CARE FOR ABNLT FETL HRT RATE OR RHYM, UNSP TRI, UNSP Status: Acute Current Visit: Yes (3) Encounter for induction of labor SNOMED Code(s): 030520826 Code(s): Z34.90 - ENCNTR FOR SUPRVSN OF NORMAL , UNSP, UNSP TRIMESTER Status: Acute Current Visit: Yes (4) AMA (advanced maternal age) multigravida 35+ SNOMED Code(s): 983585196 Code(s): O09.529 - SUPERVISION OF ELDERLY MULTIGRAVIDA, UNSPECIFIED TRIMESTER Status: Acute Current Visit: Yes Qualifiers: Trimester: third trimester Qualified Code(s): O09.523 - Supervision of elderly multigravida, third trimester (5) Vaginal delivery SNOMED Code(s): 605996368 Code(s): O80 - ENCOUNTER FOR FULL-TERM UNCOMPLICATED DELIVERY Status: Acute Current Visit: Yes (6) Perineal laceration SNOMED Code(s): 387294264 Code(s): VVG9926 - Status: Acute Current Visit: Yes (7) (infant) SNOMED Code(s): 360417693 Code(s): Z78.9 - OTHER SPECIFIED HEALTH STATUS Status: Acute Current Visit: Yes (8) Abnormal placenta SNOMED Code(s): 374493940 Code(s): O43.109 - MALFORMATION OF PLACENTA, UNSPECIFIED, UNSPECIFIED TRIMESTER Status: Acute Current Visit: Yes Qualifiers: Trimester: third trimester Qualified Code(s): O43.103 - Malformation of placenta, unspecified, third trimester - Problem List Review Problem List Initiated/Reviewed/Updated: Yes - My Orders Last 24 Hours: My Active Orders 09/21/20 10:30 Lactated Ringers [Ringers, Lactated] 1,000 ml IV ASDIRECTED 09/21/20 19:48 Patient Status [ADT] Routine Acetaminophen [Tylenol Bulk Bottle] See Dose Instructions PO Q4H PRN Docusate Sodium [Colace] 100 mg PO BID PRN Ibuprofen [Motrin Bulk Bottle] 600 mg PO Q6H PRN Assess Lochia [WOMSER] Per Unit Routine Assess Uterine Involution [WOMSER] Per Unit Routine 09/21/20 19:49 Ice Therapy [OM.PC] Per Unit Routine Perineal Care [OM.PC] Per Unit Routine Sitz Bath [OM.PC] Per Unit Routine - Assessment Assessment:: 09/21/2020 without complications Labs-O positive, HIV neg, Hep B neg, Hep C neg, RPR nonreactive, Rubella Immune, GBS negative 1st degree perineal laceration 09/22/2020 Normal Day One Fundus firm and bleeding decreasing Voiding and passing bowel movements well Patient desires discharge at 24hrs - Plan Plan:: 09/20/2020 35 yo here at 40 5/7 gestational weeks was seen in clinic and had a nonreassuring NST with occasional variables Decision was made to send to labor and delivery for BPP and induction of labor BPP-06/23 SVE-3-4//-1 FHTs now category one now Plan- Continue to monitor for labor Continue to monitor FHTs Start Pitocin now per protocol Patient may have light diet Patient may be up ad piter Patient may get in tub Plan and anticipate a vaginal delivery 09/21/2020 Plan- Routine cares Good perineal care support 09/22/2020 Continue routine cares Continue support Discharge home this evening To see me in 6 weeks for visit
[2020-09-22 16:30] VITALS: BP 105/60; PULSE 74
== END 2020-09-22 19:11 | disposition home or self-care (01) | DRG 807 ==
LOC: JP.OBCHECK 12:59 → JP.OB 13:29 → OBSVTOIN 18:44 → JP.OB 18:44 → JP.MS 09-22 00:27
PROVIDERS: ADMIT Advanced Practice Midwife; ATTEND Advanced Practice Midwife
PROC: 10E0XZZ Delivery of Products of Conception, External Approach (ICD-10-PCS; principal; 2020-09-20)
PROC: 0HQ9XZZ Repair Perineum Skin, External Approach (ICD-10-PCS; 2020-09-20)
PROC: 3E0P7VZ Introduction of Hormone into Female Reproductive, Via Natural or Artificial Opening (ICD-10-PCS; 2020-09-20)
PROC: 3E0R3BZ Introduction of Anesthetic Agent into Spinal Canal, Percutaneous Approach (ICD-10-PCS; 2020-09-20)
PROC: 00HU33Z Insertion of Infusion Device into Spinal Canal, Percutaneous Approach (ICD-10-PCS; 2020-09-20)
DX: O77.0 Labor and delivery complicated by meconium in amniotic fluid (principal); Z37.0 Single live birth; O70.0 First degree perineal laceration during delivery; Z3A.40 40 weeks gestation of pregnancy; O43.103 Malformation of placenta, unspecified, third trimester
CPT/HCPCS: 36415; 51702; 59409; 76818; 76818-26; 80305-QW; 81001; 85025; 99211; A9270-GY; J1885; J2210; J2590; J2795; J3490; J7120

== ENCOUNTER 2020-11-25 13:45 | Emergency (ER) | payer MEDICAID ==
[2020-11-25 14:03] VITALS: BP 123/71; PULSE 110
--- NOTE | 2020-11-25 14:25 | EDM.PDOC ---
ED HPI GENERAL MEDICAL PROBLEM - General Chief Complaint: COOK PIE Problem Stated Complaint: breast are sore fever and chills Time Seen by Provider: 11/25/20 14:18 Source of Information: Reports: Patient, Family, RN Notes Reviewed History Limitations: Reports: No Limitations - History of Present Illness INITIAL COMMENTS - FREE TEXT/NARRATIVE: 35-year-old female presents emergency department today concerned about mastitis, she did have mastitis with prior her right breast has been swollen she has had fevers it is tender to the touch - Related Data Allergies Allergy/AdvReac Type Severity Reaction Status Date / Time No Known Allergies Allergy Verified 11/25/20 14:09 Home Meds: Home Meds NK [No Known Home Meds] 07/30/19 [History] Past Medical History COOK PIE History: Reports: Dermatologic History: Reports: Eczema Social & Family History - Tobacco Use Tobacco Use Status *Q: Never Tobacco User - Caffeine Use Caffeine Use: Reports: Coffee, Soda, Tea ED ROS GENERAL - Review of Systems Review Of Systems: See Below Constitutional: Reports: Fever Respiratory: Reports: No Symptoms Cardiovascular: Reports: No Symptoms GI/Abdominal: Reports: No Symptoms Skin: Reports: Erythema ED EXAM, GENERAL - Physical Exam Exam: See Below Free Text/Narrative:: Breast exam deferred Exam Limited By: No Limitations General Appearance: Alert, WD/WN, No Apparent Distress Respiratory/Chest: No Respiratory Distress Course - Vital Signs Last Recorded V/S: Last Vital Signs Temp 96.7 F L 11/25/20 14:15 Pulse 110 H 11/25/20 14:15 Resp 16 11/25/20 14:15 BP 123/71 11/25/20 14:15 Pulse Ox 97 11/25/20 14:15 Departure - Departure Time of Disposition: 14:24 Disposition: Home, Self-Care 01 Condition: Fair Clinical Impression: Acute mastitis of right breast - Discharge Information Referrals: Josseline Frederick CNM [Primary Care Provider] - Additional Instructions: Take antibiotics for the next 10 days, continue breast-feeding ,please followup with your primary care provider in 5-7 days if not better, please call return to the emergency department with worsening of symptoms. Sepsis Event Note (ED) - Evaluation Sepsis Screening Result: No Definite Risk - Focused Exam Vital Signs: Vital Signs Temp Pulse Resp BP Pulse Ox 11/25/20 14:15 96.7 F L 110 H 16 123/71 97 11/25/20 13:58 96.7 F L 110 H 16 123/71 97 - Assessment/Plan Plan: Assessment Acuity = acute Site and laterality = mastitis right breast Etiology = probable bacterial cause Manifestations = none Location of injury = Home Lab values = none Plan Elected to treat empirically clindamycin 300 mg every 6 hours x10 days This note was dictated using [employer] voice recognition software please call with any questions on syntax or grammar.
== END 2020-11-25 14:34 | disposition home or self-care (01) ==
LOC: JP.ED 13:45
DX: N61.0 Mastitis without abscess (principal)
CPT/HCPCS: 99283

== ENCOUNTER 2022-05-12 06:51 | Inpatient (IN) | payer MEDICAID ==
[2022-05-12] MEDS ORDERED: Nalbuphine 10 MG/1 ML Vial IVPUSH PRN (06:57)
[2022-05-12] MEDS ORDERED: fentaNYL 100 MCG/2 ML SDV IVPUSH PRN (06:57)
[2022-05-12] MEDS ORDERED: Oxytocin 10 Units/1 ML SDV IM ONE (06:57)
[2022-05-12] MEDS ORDERED: Ondansetron 4 MG/2 ML SDV IV PRN (06:57)
[2022-05-12] MEDS ORDERED: Sodium Chloride 0.9% 10 ML Syringe FLUSH PRN ×2 (06:57)
[2022-05-12] MEDS: Lactated Ringers 1,000 ML IV SCH ×2 (08:09→10:37)
[2022-05-12] MEDS ORDERED: ePHEDrine 50 MG/ML SDV IVPUSH PRN (11:07)
[2022-05-12] MEDS ORDERED: Ropivacaine 100 ML ONE (11:13)
[2022-05-12] MEDS ORDERED: Ropivacaine 100 ML EPIDUR SCH (11:30)
[2022-05-12] MEDS ORDERED: Naloxone 0.4 MG/ML SDV IVPUSH PRN (11:30)
[2022-05-12] MEDS ORDERED: ePHEDrine 50 MG/ML SDV IV PRN (12:22)
[2022-05-12] MEDS ORDERED: Docusate Sodium 100 MG Cap PO PRN (15:06)
[2022-05-12] MEDS ORDERED: Acetaminophen 325 MG Tab PO PRN (15:06)
[2022-05-12] MEDS ORDERED: Tranexamic Acid 1,000 MG in Sodium Chloride 0.9% 50 ML IV PRN (15:06)
[2022-05-12] MEDS ORDERED: Lanolin 100% Cream 40 GM Tube TOP PRN (15:06)
[2022-05-12] MEDS ORDERED: Witch Hazel Medicated Pads 100/Jar TOP PRN (15:06)
[2022-05-12] MEDS: Ibuprofen 800 MG Tab PO PRN ×2 (16:41→22:40)
[2022-05-13] MEDS: Ibuprofen 800 MG Tab PO PRN (04:42)
[2022-05-13] MEDS ORDERED: Acetaminophen 325 MG Tab, 50 Tab Bulk Bottle PO PRN (07:13)
[2022-05-13] MEDS ORDERED: Ibuprofen 200 MG Tab, 24 Tab Bulk Bottle PO PRN (07:13)
[2022-05-13 16:24] VITALS: BP 110/60; PULSE 70
== END 2022-05-13 16:23 | disposition home or self-care (01) | DRG 807 ==
LOC: JP.OBCHECK 06:51 → JP.OB 06:54 → JP.OBCHECK 06:55 → INTOOBSV 06:57 → JP.OB 06:57 → OBSVTOIN 14:51 → JP.MS 14:52
PROVIDERS: ADMIT Obstetrics & Gynecology; ATTEND Obstetrics & Gynecology
PROC: 10E0XZZ Delivery of Products of Conception, External Approach (ICD-10-PCS; principal; 2022-05-12)
PROC: 0HQ9XZZ Repair Perineum Skin, External Approach (ICD-10-PCS; 2022-05-12)
PROC: 3E033VJ Introduction of Other Hormone into Peripheral Vein, Percutaneous Approach (ICD-10-PCS; 2022-05-12)
PROC: 3E0R3BZ Introduction of Anesthetic Agent into Spinal Canal, Percutaneous Approach (ICD-10-PCS; 2022-05-12)
PROC: 00HU33Z Insertion of Infusion Device into Spinal Canal, Percutaneous Approach (ICD-10-PCS; 2022-05-12)
DX: O70.0 First degree perineal laceration during delivery (principal); Z37.0 Single live birth; Z20.822 Contact with and (suspected) exposure to COVID-19; Z3A.39 39 weeks gestation of pregnancy
CPT/HCPCS: 36415; 51702; 80305-QW; 81001; 85025; A9270-GY; J2590; J2795; J7120; U0002

== ENCOUNTER 2022-08-17 09:30 | Emergency (ER) | payer MEDICAID ==
[2022-08-17 09:41] VITALS: BP 113/80; PULSE 107
== END 2022-08-17 10:01 | disposition home or self-care (01) ==
LOC: JP.ED 09:30
DX: O91.23 Nonpurulent mastitis associated with lactation (principal); Z86.16 Personal history of COVID-19
CPT/HCPCS: 99282; 99283